=== PATIENT | male | born 1990 | race Two or more races ===

== ENCOUNTER 2017-10-19 16:18 | Emergency (ER) | payer BC ==
[2017-10-19] MEDS: diphenhydrAMINE HCL 25 MG CAPSULE PO (16:54)
== END 2017-10-19 16:58 | disposition home or self-care (01) ==
LOC: ER 16:18
DX: K12.2 Cellulitis and abscess of mouth (principal)
CPT/HCPCS: 99283; Q0163

== ENCOUNTER 2018-01-28 02:49 | Emergency (ER) | payer BC ==
[2018-01-28] MEDS: CEPHALEXIN 250 MG CAPSULE. PO (03:57)
[2018-01-28] MEDS: IBUPROFEN 800 MG TABLET. PO (03:57)
[2018-01-28] MEDS: DIPHTH,PERTUSS(ACELL),TET TOX 0.5 ML DISP.SYRIN. VAX IM (03:58)
== END 2018-01-28 04:05 | disposition home or self-care (01) ==
LOC: ER 02:49
DX: S61.432A Puncture wound without foreign body of left hand, initial encounter (principal); Z23 Encounter for immunization; W22.8XXA Striking against or struck by other objects, initial encounter; Y93.89 Activity, other specified; Y92.89 Other specified places as the place of occurrence of the external cause; Y99.8 Other external cause status
CPT/HCPCS: 90471; 90715; 99283-25

== ENCOUNTER 2019-03-29 16:25 | Emergency (ER) | payer SELFPAY ==
[~2019-03-29] VITALS: Ht 180.3 cm; Wt 72.6 kg
[~2019-03-29 16:25] MED LIST: CEPH-264 PO; PRED20TA PO
[2019-03-29 16:30] VITALS: BP 134/82
[2019-03-29] MEDS ORDERED: MORPHINE SULFATE 2 MG/ML VIAL. IM ONE (17:00)
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
== END 2019-03-29 17:20 | disposition home or self-care (01) ==
LOC: ER 16:25
DX: T21.11XA Burn of first degree of chest wall, initial encounter (principal); T22.111A Burn of first degree of right forearm, initial encounter; T20.17XA Burn of first degree of neck, initial encounter; X15.8XXA Contact with other hot household appliances, initial encounter; Y93.89 Activity, other specified; Y92.89 Other specified places as the place of occurrence of the external cause; Y99.8 Other external cause status
CPT/HCPCS: 96372; 99283; J2270

== ENCOUNTER 2019-05-31 11:42 | Emergency (ER) | payer SELFPAY ==
[~2019-05-31] VITALS: Ht 165.1 cm; Wt 72.6 kg
[2019-05-31 12:17] VITALS: BP 125/60
[2019-05-31] MEDS ORDERED: IBUPROFEN 400 MG TABLET. PO ONE (12:45)
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
[2019-05-31] MEDS ORDERED: CYCL10TA2 PO (13:47)
[2019-05-31] MEDS ORDERED: TRAM-48 PO (13:47)
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
== END 2019-05-31 13:56 | disposition home or self-care (01) ==
LOC: ER 11:42
DX: S16.1XXA Strain of muscle, fascia and tendon at neck level, initial encounter (principal); R51 Headache; F17.200 Nicotine dependence, unspecified, uncomplicated; V49.9XXA Car occupant (driver) (passenger) injured in unspecified traffic accident, initial encounter; Y92.488 Other paved roadways as the place of occurrence of the external cause; Y93.89 Activity, other specified; Y99.8 Other external cause status
CPT/HCPCS: 72040; 99284